=== PATIENT | male | born 1945 | race American Indian/Alaskan Native ===

== ENCOUNTER 2016-08-22 07:42 | Day surgery (SDC) | payer MEDICARE, OTHER ==
[~2016-08-22] VITALS: Ht 193 cm; Wt 83.2 kg
[2016-08-22] VITALS (12 sets, daily range): BP systolic 133–163; BP diastolic 64–80; PULSE 55–60; RESP 18–20; TEMP 97.8–98.9; O2SAT 93–97
[~2016-08-22 07:42] MED LIST: AZAT50 PO; CEPH500 PO; CEPH500C3 PO; CYCL25CA4 PO; DILTCD180 PO; DOXA1TAB3 PO; FOLI1TAB PO; HYDR-3580 PO; LACT PO; MAGN200T PO; METO25 PO; PRED5 PO; PRED5TAB PO; VITA-13 PO; WARF5 PO
[2016-08-22] MEDS ORDERED: METO25TA3 PO (08:29)
[2016-08-22] MEDS ORDERED: WARF-20 PO (08:29)
[2016-08-22] MEDS ORDERED: HYDR-3580 PO (08:29)
[2016-08-22] MEDS ORDERED: DOXA1TAB36 PO (08:29)
[2016-08-22] MEDS ORDERED: METO50TA PO (08:29)
[2016-08-22] MEDS ORDERED: MAGN500T5 PO (08:29)
[2016-08-22] MEDS ORDERED: CYCL25CA4 PO (08:29)
[2016-08-22] MEDS ORDERED: PRED5TAB PO (08:29)
[2016-08-22] MEDS ORDERED: FOLI5CAP PO (08:29)
[2016-08-22] MEDS ORDERED: VITA1000 PO (08:29)
[2016-08-22 08:56] LABS: AUTOMATED NEUTROPHIL # 3.8 TH/MM3 (1.8-7.7); BASOPHIL # 0.1 TH/MM3 (0-0.2); BASOPHIL % 0.8 % (0.0-2.0); EOSINOPHIL # 0.1 TH/MM3 (0-0.4); EOSINOPHIL % 0.8 % (0.0-4.0); HEMO FLAGS DIFF FINAL; LYMPH % 35.3 % (9.0-44.0); LYMPHOCYTE # 2.5 TH/MM3 (1.0-4.8); MEAN CELL VOLUME 88.4 FL (80.0-100.0); MEAN CORPUSCULAR HEMOGLOBIN 29.2 PG (27.0-34.0); MEAN CORPUSCULAR HGB CONC 33.1 % (32.0-36.0); MONO % 10.9 % (0.0-8.0); NEUT % 52.2 % (16.0-70.0); PLATELET COUNT 197 TH/MM3 (150-450); RED BLOOD COUNT 4.19 MIL/MM3 (4.50-5.90); RED CELL DISTRIBUTION WIDTH 15.3 % (11.6-17.2); WHITE BLOOD COUNT 7.2 TH/MM3 (4.0-11.0)
[2016-08-22 09:07] LABS: APTT (PATIENT) 24.5 SEC (24.3-30.1); PROTHROMBIN TIME - PATIENT 11.4 SEC (9.8-11.6)
[2016-08-22 09:16] LABS: BICARBONATE 28.6 MEQ/L (21.0-32.0); POTASSIUM 4.2 MEQ/L (3.5-5.1)
[2016-08-22] MEDS ORDERED: MIDAZOLAM HCL 5 MG/5 ML VIAL ONE (09:41)
[2016-08-22] MEDS ORDERED: fentaNYL CITRATE 250 MCG/5 ML AMP ONE (09:41)
[2016-08-22] MEDS ORDERED: IODIXANOL 320 MG/ML 50 ML VIAL (for RAD SPEC) I-ARTERIAL ONE (11:27)
--- NOTE | 2016-08-22 14:13 | RADRPT ---
EXAM DATE/TIME: 08/22/2016 10:04 [facility] COMPARISON: No previous studies available for comparison. INDICATIONS : Patient presents with post kidney transplant in need of renal angiogram to rule out stenosis. MEDICAL HISTORY : Afib Septic bursitis Skin cancer CKD Osteoarthritis HTN PAD Hyperlipemia SURGICAL HISTORY : Kidney tx 1996 Afib ablation Right rotator cuff repair Ureteral stenting 2010 Fibula repair ENCOUNTER: Initial ACUITY: 3 weeks PAIN SCORE: 0/10 LOCATION: N/A FLUORO TIME: 20.9 minutes IMAGE SERIES: 7 ACCESS SITE: Left Femoral artery SEDATION TIME: 60 minutes CONTRAST: 1.) 30 cc Visipaque (iodixanol) MEDICATION(S): 1.) 4.5 mg IV 2.) 225 mcg IV PROCEDURE : 1. Ultrasound-guided puncture of the access site. 2. Conscious sedation with continuous EKG and Oximetry monitoring. 3. Angiography of the pelvis 4. Angiography of the right external iliac artery The risks, benefits and alternatives to the procedure were explained and verbal and written consent w as obtained. The site was prepped in sterile fashion. Full sterile technique was used, including ca p, mask, sterile gloves and gown and a large sterile sheet. Hand hygiene and 2% chlorhexidine and/or betadine/alcohol prep was utilized per protocol for cutaneous antisepsis. The skin and subcutaneous tissues were infiltrated with local anesthetic solution. With ultrasound and fluoroscopic guidance the selected artery was punctured and a vascular sheath was placed The Omni flush catheter was placed over the aortic bifurcation and a guidewire was advanced into the common femoral artery. A Berenstein catheter was placed over the bifurcation into the right external iliac artery and angiography was performed to demonstrate the renal transplant. The renal artery is w idely patent. The venous phase is also unremarkable. The puncture site was closed with manual pressure and hemostasis was obtained. The patient tolerated the procedure well and there were no complications. Conscious sedation was performed with the prescribed dosages and duration as above in the presence of an independent trained radiology nurse to assist in the monitoring of the patient. EKG and oximetry remained stable throughout the procedure. CONCLUSION: 1. No evidence of renal artery stenosis. Yehuda Rosario MD on August 22, 2016 at 14:10 Board Certified Radiologist. This report was verified electronically.
[2016-08-22] MEDS ORDERED: SODIUM CHLOR 0.9% 1000 ML INJ 1,000 ML IV SCH (14:35)
--- NOTE | 2016-08-22 14:36 | PD.RAD ---
Post Procedure Progress Note Pre Procedure Diagnosis: (1) HTN (hypertension) Post Procedure Diagnosis: (1) HTN (hypertension) Procedure Date: Aug 22, 2016 Supervising Radiologist: Yehuda Rosario Proceduralist/Assist: Greg Reese, RT(R), Devorah Simon RT(R)() Anesthesia: Conscious Sedation Plan of Activity Patient to Unit: ROPU Patient Condition: Good See PACS Report for procedural detail/treatment Vascular-Arterial Procedure Procedure 1 Procedure Site: Right Renal Procedure(s): Angiogram Access Access Site(s): Left Femoral Artery Closure Site(s): Left manual pressure Yehuda Rosario MD Aug 22, 2016 14:36
[2016-08-22] MEDS ORDERED: ACETAMINOPHEN 325 MG TAB PO PRN (14:45)
[2016-08-22] MEDS ORDERED: oxyCODONE/ACETAMINOPHEN 5 MG/325 MG TAB PO PRN (14:45)
== END 2016-08-22 17:20 | disposition home or self-care (01) ==
LOC: HROP 07:42 → HRIP 07:43 → HROP 17:20
PROVIDERS: ATTEND Internal Medicine Nephrology
DX: I10 Essential (primary) hypertension (principal); I48.91 Unspecified atrial fibrillation; Z94.0 Kidney transplant status; Z85.828 Personal history of other malignant neoplasm of skin
CPT/HCPCS: 36251; 76937; 80048; 85025; 85610; 85730; 99152; 99153; C1769; C1887; C1894; J2250; J3010; Q9967

== ENCOUNTER → 2016-12-05 | Outpatient (CLI) | payer MEDICARE, OTHER ==
[~2016-12-05] MED LIST changes: +AMLO2.5T PO; -AZAT50 PO; -CEPH500 PO; -CEPH500C3 PO; -DILTCD180 PO; +DOXA1TAB36 PO; +FOLI5CAP PO; +FOLI800T PO; +FURO1TAB62 PO; +GUAN1TAB PO; +IMUR50TA PO; -LACT PO; +LOSA50TA PO; +MAGN500T5 PO; +METO25TA3 PO; +METO50TA PO; +VITA1000 PO; +WARF-20 PO; -WARF5 PO
[2016-12-05 11:20] LABS: POTASSIUM 3.9 MEQ/L (3.5-5.1)
== END ==
LOC: CLAB 10:13
PROVIDERS: ATTEND Internal Medicine Cardiovascular Disease
DX: I48.0 Paroxysmal atrial fibrillation (principal); R60.0 Localized edema; Z94.0 Kidney transplant status
CPT/HCPCS: 36415; 80048; 83880

== ENCOUNTER 2016-12-06 10:09 | Emergency (ER) | payer MEDICARE, OTHER ==
[~2016-12-06] VITALS: Ht 193 cm; Wt 84.0 kg
[~2016-12-06 10:09] MED LIST changes: -AMLO2.5T PO; -FOLI800T PO; -FURO1TAB62 PO; -GUAN1TAB PO; -IMUR50TA PO; -LOSA50TA PO
[2016-12-06 10:13] VITALS: BP 194/93; PULSE 94; RESP 16; TEMP 98.6; O2SAT 97
[2016-12-06] MEDS ORDERED: LOSA50TA PO (10:45)
[2016-12-06] MEDS ORDERED: GUAN1TAB PO (10:45)
[2016-12-06] MEDS ORDERED: FURO1TAB62 PO ×2 (10:45→14:50)
[2016-12-06] MEDS ORDERED: IMUR50TA PO (10:45)
[2016-12-06] MEDS ORDERED: AMLO2.5T PO (10:45)
[2016-12-06] MEDS ORDERED: FOLI800T PO (10:45)
[2016-12-06 11:15] VITALS: BP 181/97; PULSE 59; RESP 17; TEMP 97.7; O2SAT 98
[2016-12-06 11:35] LABS: AUTOMATED NEUTROPHIL # 4.8 TH/MM3 (1.8-7.7); BASOPHIL # 0.1 TH/MM3 (0-0.2); BASOPHIL % 1.2 % (0.0-2.0); EOSINOPHIL # 0.1 TH/MM3 (0-0.4); EOSINOPHIL % 1.6 % (0.0-4.0); HEMATOCRIT 36.7 % (39.0-51.0); HEMO FLAGS DIFF FINAL; LYMPH % 24.3 % (9.0-44.0); LYMPHOCYTE # 1.9 TH/MM3 (1.0-4.8); MEAN CELL VOLUME 86.7 FL (80.0-100.0); MEAN CORPUSCULAR HEMOGLOBIN 28.5 PG (27.0-34.0); MEAN CORPUSCULAR HGB CONC 32.8 % (32.0-36.0); MONO % 11.1 % (0.0-8.0); NEUT % 61.8 % (16.0-70.0); PLATELET COUNT 233 TH/MM3 (150-450); RED BLOOD COUNT 4.24 MIL/MM3 (4.50-5.90); WHITE BLOOD COUNT 7.8 TH/MM3 (4.0-11.0)
[2016-12-06 11:36] LABS: BLOOD, URINE NEG (NEG); GLUCOSE,URINE NEG (NEG); KETONE, URINE NEG (NEG); NITRITE,URINE NEG (NEG); URINE COLOR LIGHT-YELLOW (YELLW/STRAW)
[2016-12-06 11:37] LABS: COMMENT (UR) CULT NOT INDICATED; CULTURE IF INDICATED CULT NOT INDICATED
--- NOTE | 2016-12-06 11:47 | RADRPT ---
EXAM DATE/TIME: 12/06/2016 11:19 [facility] COMPARISON: CHEST SINGLE AP, April 10, 2015, 2:55. INDICATIONS : Shortness of breath and swelling in feet. MEDICAL HISTORY : Hypertension. SURGICAL HISTORY : Kidney transplant ENCOUNTER: Initial ACUITY: 4 - 6 days PAIN SCORE: 0/10 LOCATION: Bilateral chest FINDINGS: Cardiac silhouette is enlarged with slight indistinctness of the central pulmonary vasculature. Lungs are otherwise clear. Bony thorax is intact. CONCLUSION: 1. Cardiomegaly with mild positive fluid balance. Felipe Ayala MD on December 06, 2016 at 11:44 Board Certified Radiologist. This report was verified electronically.
--- NOTE | 2016-12-06 11:47 | PD ---
HPI Chief Complaint: Hypertension Time Seen by Provider: 11:10 Travel History International Travel<30 days: No Contact w/Intl Traveler<30days: No Traveled to known affect area: No History of Present Illness HPI This is a 71-year-old gentleman with a history of hypertension, status post renal transplant 20 years ago, who presents today with complaints of elevated blood pressure. The patient states that his blood pressures been creeping up over the last week or so. He states that he sat is metoprolol increased however still persistently increasing. Today he noted his blood pressure to be 200 systolic and at that time decided to come in to be evaluated. He states he works with Dr. You and Dr. Braun for his blood pressure control. He states that Dr. Braun is out of town and Dr. You is out of the office. Patient denies any chest pain, chest pressure. He denies any shortness of breath. He denies any headache or dizziness at this time. PFSH Past Medical History Hx Anticoagulant Therapy: Yes Arthritis: Yes Asthma: No Atrial Fibrillation: Yes Autoimmune Disease: No Anxiety: Yes Depression: No Heart Rhythm Problems: Yes (a fib ) Cancer: Yes (SKIN CA ON EAR AND CHEST) Cardiovascular Problems: Yes (HTN) High Cholesterol: Yes Chemotherapy: No Chest Pain: No Congestive Heart Failure: No COPD: No Cerebrovascular Accident: No Diabetes: No (HX KIDEY TRANSPLANT) Diminished Hearing: Yes (left ear [place] ) Endocrine: No GERD: No Genitourinary: Yes (BPH) Hepatitis: No Hiatal Hernia: No Hypertension: Yes Immune Disorder: Yes (on immunosuppressant therapy ) Kidney Stones: No Medical other: Yes (VOICE CHANGES--DIFFICULTY CLEARING THROAT) Musculoskeletal: Yes (BACK PROBLEMS, ARTHRITIS) Neurologic: No Psychiatric: Yes Reproductive: No Respiratory: No Migraines: No Radiation Therapy: No Renal Failure: Yes (TRANSPLANT) Seizures: No Sleep Apnea: No Thyroid Disease: No Ulcer: No Past Surgical History Abdominal Surgery: Yes (R INGUINAL HERNIA REPAIR 2010) AICD: No Arteriovenous Shunt: No Body Medical Devices: KIDNEY TRANSPLANT Cardiac Surgery: No Ear Surgery: Yes (skin cancer surgery ) Endocrine Surgery: No Eye Surgery: No Genitourinary Surgery: Yes (KIDNEY TRANSPLANT 1996) Insulin Pump: No Joint Replacement: No Oral Surgery: No Pacemaker: No Thoracic Surgery: No Other Surgery: Yes (KIDNEY REPLACEMENT) Social History Alcohol Use: No Tobacco Use: No Substance Use: No Allergies-Medications (Allergen,Severity, Reaction): Coded Allergies: No Known Allergies (Verified , 12/06/16) Reported Meds & Prescriptions Reported Meds & Active Scripts Active Lasix (Furosemide) 20 Mg Tab 20 Mg PO DAILY Reported Losartan (Losartan Potassium) 50 Mg Tab 50 Mg PO DAILY Lasix (Furosemide) 20 Mg Tab 20 Mg PO DAILY Guanfacine (Guanfacine HCl) 1 Mg Tab 1 Mg PO HS Do not crush, chew or divide tablet. Take with a meal. Amlodipine (Amlodipine Besylate) 2.5 Mg Tab 2.5 Mg PO DAILY Folic Acid 800 Mcg Tab 1,000 Mcg PO DAILY Imuran (Azathioprine) 50 Mg Tab 50 Mg PO DAILY Hazardous agent: use appropriate precautions for handling and disposal. Warfarin 4 Mg Tab 4 Mg PO DAILY Prednisone 5 Mg Tab 5 Mg PO DAILY Metoprolol Tartrate 50 Mg Tab 50 Mg PO HS Metoprolol Tartrate 25 Mg Tab 25 Mg PO DAILY Magnesium Gluconate 500 Mg Tab 400 Mg PO DAILY Hydrocodone-Acetaminophen 7.5-325 mg Tab 1 Tab PO Q6H PRN Doxazosin (Doxazosin Mesylate) 1 Mg Tab 1 Mg PO HS Cyclosporine 25 Mg Cap 50 Mg PO BID Vitamin D-1000 (Cholecalciferol) 1,000 Unit Tab 1,000 Units PO DAILY Review of Systems Except as stated in HPI: all other systems reviewed are Neg General / Constitutional: No: Fever, Chills Eyes: No: Blurred Vision, Photophobia HENT: No: Headaches, Neck Pain Cardiovascular: No: Chest Pain or Discomfort, Palpitations Respiratory: No: Shortness of Breath, Wheezing Gastrointestinal: No: Nausea, Vomiting Musculoskeletal: Positive: Other (patient has 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 SKIN: Focused skin assessment warm/dry. HEAD: Atraumatic. Normocephalic. EYES: No scleral icterus. No injection or drainage. ENT: No nasal bleeding or discharge. Mucous membranes pink and moist. NECK: Trachea midline. No JVD. CARDIOVASCULAR: Regular rate and rhythm 3/6 systolic murmur heard at the right sternal border. No murmur appreciated. RESPIRATORY: No accessory muscle use. Clear to auscultation. Breath sounds equal bilaterally. GASTROINTESTINAL: Abdomen soft, non-tender, nondistended. Hepatic and splenic margins not palpable. MUSCULOSKELETAL: Distended varicosities of his left upper extremity secondary to this previous fistulas. No clubbing. No cyanosis. No edema. NEUROLOGICAL: Awake and alert. No obvious cranial nerve deficits. Motor grossly within normal limits. Normal speech. Data Data Last Documented VS Vital Signs Date Time Temp Pulse Resp B/P Pulse Ox O2 Delivery O2 Flow Rate FiO2 12/06/16 13:26 97.7 58 17 170/81 98 Room Air Orders Complete Blood Count With Diff (12/06/16 11:10) Comprehensive Metabolic Panel (12/06/16 11:10) Urinalysis - C+S If Indicated (12/06/16 11:10) Magnesium (Mg) (12/06/16 11:10) Phosphorus (Po4) (12/06/16 11:10) Chest, Single Ap (12/06/16 11:10) Iv Access Insert/Monitor (12/06/16 11:10) Ecg Monitoring (12/06/16 11:10) Oximetry (12/06/16 11:10) Prothrombin Time / Inr (Pt) (12/06/16 12:07) Act Partial Throm Time (Ptt) (12/06/16 12:07) Hydralazine (Apresoline) (12/06/16 12:15) Sodium Chlorid 0.9% 500 Ml Inj (Ns 500 M (12/06/16 14:00) Labs Laboratory Tests Test 12/06/16 12/06/16 11:15 12:15 White Blood Count 7.8 TH/MM3 Red Blood Count 4.24 MIL/MM3 Hemoglobin 12.1 GM/DL Hematocrit 36.7 % Mean Corpuscular Volume 86.7 FL Mean Corpuscular Hemoglobin 28.5 PG Mean Corpuscular Hemoglobin 32.8 % Concent Red Cell Distribution Width 14.0 % Platelet Count 233 TH/MM3 Mean Platelet Volume 6.9 FL Neutrophils (%) (Auto) 61.8 % Lymphocytes (%) (Auto) 24.3 % Monocytes (%) (Auto) 11.1 % Eosinophils (%) (Auto) 1.6 % Basophils (%) (Auto) 1.2 % Neutrophils # (Auto) 4.8 TH/MM3 Lymphocytes # (Auto) 1.9 TH/MM3 Monocytes # (Auto) 0.9 TH/MM3 Eosinophils # (Auto) 0.1 TH/MM3 Basophils # (Auto) 0.1 TH/MM3 CBC Comment DIFF FINAL Differential Comment Urine Color LIGHT-YELLOW Urine Turbidity CLEAR Urine pH 6.0 Urine Specific [place] 1.006 Urine Protein 100 mg/dL Urine Glucose (UA) NEG mg/dL Urine Ketones NEG mg/dL Urine Occult Blood NEG Urine Nitrite NEG Urine Bilirubin NEG Urine Urobilinogen LESS THAN 2.0 MG/DL Urine Leukocyte Esterase NEG Urine RBC LESS THAN 1 /hpf Urine WBC 1 /hpf Microscopic Urinalysis Comment CULT NOT INDICATED Sodium Level 141 MEQ/L Potassium Level 4.0 MEQ/L Chloride Level 108 MEQ/L Carbon Dioxide Level 25.4 MEQ/L Anion Gap 8 MEQ/L Blood Urea Nitrogen 25 MG/DL Creatinine 1.22 MG/DL Estimat Glomerular Filtration 58 ML/MIN Rate Random Glucose 79 MG/DL Calcium Level 8.8 MG/DL Phosphorus Level 2.5 MG/DL Magnesium Level 2.2 MG/DL Total Bilirubin 0.8 MG/DL Aspartate Amino Transf 20 U/L (AST/SGOT) Alanine Aminotransferase 26 U/L (ALT/SGPT) Alkaline Phosphatase 67 U/L Total Protein 6.4 GM/DL Albumin 2.9 GM/DL Prothrombin Time 19.2 SEC Prothromb Time International 1.7 RATIO Ratio Activated Partial 33.6 SEC Thromboplast Time MDM Medical Decision Making Medical Screen Exam Complete: Yes Emergency Medical Condition: Yes Differential Diagnosis Uncontrolled hypertension versus metabolic derangement versus worsening renal function. Narrative Course This is a 71-year-old male with history of renal transplant, hypertension, who presents here with elevated blood pressure. The patient also is concerned his creatinine may be increased. The patient's crit is 1.2 which is close to his baseline. He also is complaining of lower extremity edema. He is currently taking amlodipine, 2.5 mg daily. This possibly could be the cause of his lower extremity edema. He is currently taking Lasix I will prescribe 5 further days of Lasix at 20 mg a day. He is instructed to purchase some medium support hose to help redistribute the edema in his lower extremities. He is also instructed to increase his metoprolol to 50 mg in the morning instead of 25 and to continue his 50 mg at night. He will need to follow up with Dr. You, his drilling contractor, within one week. He is also instructed to continue drinking the same amount of fluid that he is currently drinking at this time. Diagnosis Primary Impression: Hypertension Additional Impressions: Bilateral lower extremity edema Renal transplant, status post Additional Instructions: Increase your morning dose of metoprolol to 50 mg. Continue your evening dose at 50 mg. Please purchase some medium support stockings and wear during the day. Follow up with Dr. You within one week. Med/Other Pt SpecificInfo: Prescription(s) given Scripts Furosemide (Lasix)20 Mg Tab20 Mg PO DAILY #5 TAB Ref 0 Prov:Darvin Mckeon MD 12/06/16 Disposition: 01 DISCHARGE HOME Condition: Stable Darvin Mckeon MD Dec 06, 2016 11:47
[2016-12-06 11:55] LABS: ALT (GPT) 26 U/L (12-78); ANION GAP 8 MEQ/L (5-15); AST (GOT) 20 U/L (15-37); BICARBONATE 25.4 MEQ/L (21.0-32.0); BLOOD UREA NITROGEN 25 MG/DL (7-18); CHLORIDE 108 MEQ/L (98-107); GLOMERULAR FILTRATION RATE 58 ML/MIN (>89); MAGNESIUM 2.2 MG/DL (1.5-2.5); SODIUM (NA) 141 MEQ/L (136-145)
[2016-12-06 11:57] LABS: ALKALINE PHOSPHATASE 67 U/L (45-117); TOTAL BILIRUBIN ADULT 0.8 MG/DL (0.2-1.0)
[2016-12-06 12:08] VITALS: BP 170/81; PULSE 59; RESP 17; O2SAT 97
[2016-12-06] MEDS ORDERED: hydrALAZINE HCL 10 MG TAB PO ONE (12:15)
[2016-12-06 12:43] LABS: APTT (PATIENT) 33.6 SEC (24.3-30.1); INTERNATIONAL NORMALIZED RATIO 1.7 RATIO; PROTHROMBIN TIME - PATIENT 19.2 SEC (9.8-11.6)
[2016-12-06 13:26] VITALS: BP 170/81; PULSE 58; RESP 17; TEMP 97.7; O2SAT 98
[2016-12-06] MEDS ORDERED: SODIUM CHLORID 0.9% 500 ML INJ 500 ML IV ONE (14:00)
[2016-12-06 15:07] VITALS: BP 160/72; TEMP 97.7
== END 2016-12-06 15:07 | disposition home or self-care (01) ==
LOC: NEPE 10:09
DX: I10 Essential (primary) hypertension (principal); R60.0 Localized edema; I48.91 Unspecified atrial fibrillation; E78.00 Pure hypercholesterolemia, unspecified; Z94.0 Kidney transplant status; Z79.01 Long term (current) use of anticoagulants
CPT/HCPCS: 71010; 80053; 81001; 83735; 84100; 85025; 85610; 85730; 96360; 99284; J7040

== ENCOUNTER 2016-12-14 10:23 | Emergency (ER) | payer MEDICARE, OTHER ==
[~2016-12-14] VITALS: Ht 193 cm; Wt 80.0 kg
[~2016-12-14 10:23] MED LIST changes: +AMLO2.5T PO; +FOLI800T PO; +FURO1TAB62 PO; +GUAN1TAB PO; +IMUR50TA PO; +LOSA50TA PO
[2016-12-14 10:26] VITALS: BP 160/72; PULSE 64; RESP 16; TEMP 97.9; O2SAT 97
[2016-12-14] MEDS ORDERED: ACETAMINOPHEN/HYDROcodone 325 MG/5 MG TAB PO ONE (11:00)
--- NOTE | 2016-12-14 11:07 | PD ---
HPI Chief Complaint: Injury Time Seen by Provider: 10:48 Travel History International Travel<30 days: No Contact w/Intl Traveler<30days: No Traveled to known affect area: No History of Present Illness HPI 71-year-old male here with left hand pain. Patient states that he injured the left hand yesterday evening, hitting it. Since he has noticed swelling, bruising. Patient has a history of ESRD, and has an old AV fistula in his left upper extremity. He had a renal transplant and so no longer uses this. He does not note any baseline swelling in the left hand from the AV fistula. He is anticoagulated on Coumadin and states that he bruises easily. He has been using hydrocodone with some improvement of his pain, he takes this chronically. PFSH Past Medical History Hx Anticoagulant Therapy: Yes (coumadin) Arthritis: Yes Asthma: No Atrial Fibrillation: Yes Autoimmune Disease: No Anxiety: Yes Depression: No Heart Rhythm Problems: Yes (a fib ) Cancer: Yes (SKIN CA ON EAR AND CHEST) Cardiovascular Problems: Yes (HTN) High Cholesterol: Yes Chemotherapy: No Chest Pain: No Congestive Heart Failure: No COPD: No Cerebrovascular Accident: No Diminished Hearing: Yes (left ear [place] ) Endocrine: No GERD: No Genitourinary: Yes (BPH) Hepatitis: No Hiatal Hernia: No Hypertension: Yes Immune Disorder: Yes (on immunosuppressant therapy ) Kidney Stones: No Medical other: Yes (VOICE CHANGES--DIFFICULTY CLEARING THROAT) Musculoskeletal: Yes (BACK PROBLEMS, ARTHRITIS) Neurologic: No Psychiatric: Yes Reproductive: No Respiratory: No Migraines: No Radiation Therapy: No Renal Failure: Yes (TRANSPLANT) Seizures: No Sleep Apnea: No Thyroid Disease: No Ulcer: No Past Surgical History Abdominal Surgery: Yes (R INGUINAL HERNIA REPAIR 2010) AICD: No Arteriovenous Shunt: No Body Medical Devices: KIDNEY TRANSPLANT Cardiac Surgery: No Ear Surgery: Yes (skin cancer surgery ) Endocrine Surgery: No Eye Surgery: No Genitourinary Surgery: Yes (KIDNEY TRANSPLANT 1996) Insulin Pump: No Joint Replacement: No Oral Surgery: No Pacemaker: No Thoracic Surgery: No Other Surgery: Yes (KIDNEY REPLACEMENT, RIGHT SHOULDER ROTATOR CUFF) Social History Alcohol Use: No Tobacco Use: No Substance Use: No Allergies-Medications (Allergen,Severity, Reaction): Coded Allergies: No Known Allergies (Verified , 12/14/16) Reported Meds & Prescriptions Reported Meds & Active Scripts Active Lasix (Furosemide) 20 Mg Tab 20 Mg PO DAILY Reported Losartan (Losartan Potassium) 50 Mg Tab 50 Mg PO DAILY Lasix (Furosemide) 20 Mg Tab 20 Mg PO DAILY Guanfacine (Guanfacine HCl) 1 Mg Tab 1 Mg PO HS Do not crush, chew or divide tablet. Take with a meal. Amlodipine (Amlodipine Besylate) 2.5 Mg Tab 2.5 Mg PO DAILY Folic Acid 800 Mcg Tab 1,000 Mcg PO DAILY Imuran (Azathioprine) 50 Mg Tab 50 Mg PO DAILY Hazardous agent: use appropriate precautions for handling and disposal. Warfarin 4 Mg Tab 4 Mg PO DAILY Prednisone 5 Mg Tab 5 Mg PO DAILY Metoprolol Tartrate 50 Mg Tab 50 Mg PO HS Metoprolol Tartrate 25 Mg Tab 25 Mg PO DAILY Magnesium Gluconate 500 Mg Tab 400 Mg PO DAILY Hydrocodone-Acetaminophen 7.5-325 mg Tab 1 Tab PO Q6H PRN Doxazosin (Doxazosin Mesylate) 1 Mg Tab 1 Mg PO HS Cyclosporine 25 Mg Cap 50 Mg PO BID Vitamin D-1000 (Cholecalciferol) 1,000 Unit Tab 1,000 Units PO DAILY Review of Systems Except as stated in HPI: all other systems reviewed are Neg Physical Exam Narrative GENERAL: Well-appearing male in no acute distress SKIN: Focused skin assessment warm/dry. HEAD: Normocephalic. EYES: No scleral icterus. No injection or drainage. CARDIOVASCULAR: Regular rate and rhythm. RESPIRATORY: No accessory muscle use. MUSCULOSKELETAL: Left upper extremity with large AV fistula with palpable thrill. The left hand is ecchymotic particularly on the palmar aspect and the dorsal fifth and fourth metacarpals. There is no bony tenderness to palpation or step-offs. Patient does have some mild pain with passive and active range of motion of the hand diffusely, focused most around the fifth and fourth MCP' s. The function of the intrinsic muscles of the hand, flexion and extension of the fingers and thumb opposition are intact. NEUROLOGICAL: Awake and alert. Normal speech. PSYCHIATRIC: Appropriate mood and affect; insight and judgment normal. Data Data Last Documented VS Vital Signs Date Time Temp Pulse Resp B/P Pulse Ox O2 Delivery O2 Flow Rate FiO2 12/14/16 10:26 97.9 64 16 160/72 97 Orders Hand, Complete (Aan9lpi) (12/14/16 ) Acetamin-Hydrocod 325-5 Mg ([place] 5-325 (12/14/16 11:00) MDM Medical Decision Making Medical Screen Exam Complete: Yes Emergency Medical Condition: Yes Medical Record Reviewed: Yes Differential Diagnosis 71-year-old male here with left hand pain after he injured it last night. Ecchymotic and swelling. This could be simply due to hematoma/ecchymosis from his underlying anticoagulation on Coumadin. Differential includes concurrent fracture and less likely dislocation. Narrative Course Given hydrocodone for pain. X-ray of the left hand shows no acute abnormalities. Patient reassured and discharged home Diagnosis Primary Impression: Contusion of left hand including fingers Qualified Code: S60.222A - Contusion of left hand including fingers, initial encounter Referrals: Primary Care Physician as needed Additional Instructions: Continue hydrocodone as needed for pain. Elevate the left hand to help with swelling. Ice the affected area 20 minutes at a time 3-4 times daily as needed for pain. Follow-up with primary if symptoms persist. Med/Other Pt SpecificInfo: No Change to Meds Disposition: 01 DISCHARGE HOME Condition: Stable Vicenta Lovelace MD Dec 14, 2016 11:07
--- NOTE | 2016-12-14 11:58 | RADRPT ---
EXAM DATE/TIME: 12/14/2016 11:20 [facility] COMPARISON: HAND LEFT COMPLETE ([id number]), April 02, 2016, 11:09. INDICATIONS : Left hand pain, jammed in car door. MEDICAL HISTORY : Renal disease, end stage. AV fistula SURGICAL HISTORY : None. ENCOUNTER: Initial ACUITY: 1 day PAIN SCORE: 10/10 LOCATION: Left hand, metacarpals FINDINGS: Three view examination of the left hand demonstrates no soft tissue swelling, dislocation, or fractur e. The carpal bones appear intact. The interphalangeal and metacarpophalangeal joints are intact. Bony mineralization is normal. 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 Jhonatan Sharma MD FACR on December 14, 2016 at 11:54 Board Certified Radiologist. This report was verified electronically.
== END 2016-12-14 12:29 | disposition home or self-care (01) ==
LOC: NEPD 10:23
DX: S60.222A Contusion of left hand, initial encounter (principal); M19.90 Unspecified osteoarthritis, unspecified site; I48.91 Unspecified atrial fibrillation; F41.9 Anxiety disorder, unspecified; E78.00 Pure hypercholesterolemia, unspecified; N40.0 Benign prostatic hyperplasia without lower urinary tract symptoms; I12.0 Hypertensive chronic kidney disease with stage 5 chronic kidney disease or end stage renal disease; N18.6 End stage renal disease; W22.8XXA Striking against or struck by other objects, initial encounter
CPT/HCPCS: 73130; 99283

== ENCOUNTER 2017-02-18 07:06 | Emergency (ER) | payer MEDICARE, OTHER ==
[2017-02-18] VITALS (7 sets, daily range): BP systolic 171–196; BP diastolic 72–83; PULSE 60–84; RESP 18; TEMP 98.1; O2SAT 96–97
[~2017-02-18] VITALS: Ht 193 cm; Wt 80.8 kg
[~2017-02-18 07:06] MED LIST changes: -DOXA1TAB3 PO; -FOLI1TAB PO; -FOLI5CAP PO; -MAGN200T PO; -METO25 PO; -PRED5 PO; -VITA-13 PO
[2017-02-18] MEDS ORDERED: METO100T9 PO (07:28)
--- NOTE | 2017-02-18 07:49 | PD ---
HPI Chief Complaint: Hypertension Time Seen by Provider: 07:47 Travel History International Travel<30 days: No Contact w/Intl Traveler<30days: No Traveled to known affect area: No History of Present Illness HPI 71-year-old male patient with history of hypertension, kidney transplant, multiple medical issues, presents to the ER today because he states that he has had 2 days history of headaches and his blood pressures up and fairly elevated. He states that 2 weeks ago his primary care physician had taken him off of some of his blood pressure control medications, because he states that his blood pressure drops at times. He states that he has noticed in the last week or so that his blood pressure has been more elevated than usual. He denies any chest pains, shortness of breath, neurological symptoms, or any other issues. He states that his headache is a 6 out of 10 currently. He denies any nausea, vomiting, stiff neck, photophobia, or fevers. He states that he gets headaches on occasion. Modifying Factors: None Associated Signs & Symptoms: Headache, elevated blood pressure Risk Factors: History of hypertension, kidney transplant, recent blood pressure medication changes PFSH Past Medical History Hx Anticoagulant Therapy: Yes (coumadin) Arthritis: Yes Asthma: No Atrial Fibrillation: Yes Autoimmune Disease: No Anxiety: Yes Depression: No Heart Rhythm Problems: Yes (a fib ) Cancer: Yes (SKIN CA ON EAR AND CHEST) Cardiovascular Problems: Yes (HTN) High Cholesterol: Yes Chemotherapy: No Chest Pain: No Congestive Heart Failure: No COPD: No Cerebrovascular Accident: No Diminished Hearing: Yes (left ear [place] ) Endocrine: No GERD: No Genitourinary: Yes (BPH) Hepatitis: No Hiatal Hernia: No Hypertension: Yes Immune Disorder: Yes (on immunosuppressant therapy ) Kidney Stones: No Medical other: Yes (VOICE CHANGES--DIFFICULTY CLEARING THROAT) Musculoskeletal: Yes (BACK PROBLEMS, ARTHRITIS) Neurologic: No Psychiatric: Yes Reproductive: No Respiratory: No Migraines: No Radiation Therapy: No Renal Failure: Yes (TRANSPLANT) Seizures: No Sleep Apnea: No Thyroid Disease: No Ulcer: No Influenza Vaccination: No Past Surgical History Abdominal Surgery: Yes (R INGUINAL HERNIA REPAIR 2010) AICD: No Arteriovenous Shunt: No Body Medical Devices: KIDNEY TRANSPLANT Cardiac Surgery: No Ear Surgery: Yes (skin cancer surgery ) Endocrine Surgery: No Eye Surgery: No Genitourinary Surgery: Yes (KIDNEY TRANSPLANT 1996) Insulin Pump: No Joint Replacement: No Oral Surgery: No Pacemaker: No Thoracic Surgery: No Other Surgery: Yes (KIDNEY REPLACEMENT, RIGHT SHOULDER ROTATOR CUFF) Social History Alcohol Use: No Tobacco Use: No Substance Use: No Allergies-Medications (Allergen,Severity, Reaction): Coded Allergies: No Known Allergies (Verified , 02/18/17) Reported Meds & Prescriptions Reported Meds & Active Scripts Active Reported Metoprolol Succinate ER 24 HR (Metoprolol Succinate) 100 Mg Tab 100 Mg PO HS Losartan (Losartan Potassium) 50 Mg Tab 100 Mg PO DAILY Folic Acid 800 Mcg Tab 1,000 Mcg PO DAILY Warfarin 4 Mg Tab 4 Mg PO DAILY Prednisone 5 Mg Tab 5 Mg PO DAILY Metoprolol Tartrate 25 Mg Tab 25 Mg PO DAILY Magnesium Gluconate 500 Mg Tab 400 Mg PO DAILY Doxazosin (Doxazosin Mesylate) 1 Mg Tab 4 Mg PO HS Cyclosporine 25 Mg Cap 50 Mg PO BID Review of Systems Except as stated in HPI: all other systems reviewed are Neg Physical Exam Narrative GENERAL: Well-developed pleasant elderly white male patient currently in mild distress. Awake and oriented 3. SKIN: Focused skin assessment warm/dry. HEAD: Atraumatic. Normocephalic. EYES: Pupils equal and round. No scleral icterus. No injection or drainage. ENT: No nasal bleeding or discharge. Mucous membranes pink and moist. NECK: Trachea midline. No JVD. Supple. CARDIOVASCULAR: Regular rate and rhythm. No murmur appreciated. RESPIRATORY: No accessory muscle use. Clear to auscultation. Breath sounds equal bilaterally. GASTROINTESTINAL: Abdomen soft, non-tender, nondistended. Hepatic and splenic margins not palpable. MUSCULOSKELETAL: No obvious deformities. No clubbing. No cyanosis. No edema. NEUROLOGICAL: Awake and alert. No obvious cranial nerve deficits. Motor grossly within normal limits. Normal speech. PSYCHIATRIC: Appropriate mood and affect; insight and judgment normal. Data Data Last Documented VS Vital Signs Date Time Temp Pulse Resp B/P (MAP) Pulse Ox O2 Delivery O2 Flow Rate FiO2 02/18/17 11:26 84 18 174/72 (106) 96 Room Air 02/18/17 07:12 98.1 Orders Orders Electrocardiogram (02/18/17 07:23) Complete Blood Count With Diff (02/18/17 07:23) Basic Metabolic Panel (Bmp) (02/18/17 07:23) Troponin I (02/18/17 07:23) Cyclosporine (02/18/17 07:23) Clonidine (Catapres) (02/18/17 08:45) Clonidine (Catapres) (02/18/17 09:45) Acetamin-Hydrocod 325-5 Mg ([place] 5-325 (02/18/17 12:00) Labs Laboratory Tests Test 02/18/17 08:08 White Blood Count 5.9 TH/MM3 Red Blood Count 4.16 MIL/MM3 Hemoglobin 11.6 GM/DL Hematocrit 35.4 % Mean Corpuscular Volume 85.1 FL Mean Corpuscular Hemoglobin 27.9 PG Mean Corpuscular Hemoglobin Concent 32.8 % Red Cell Distribution Width 14.7 % Platelet Count 224 TH/MM3 Mean Platelet Volume 6.4 FL Neutrophils (%) (Auto) 51.6 % Lymphocytes (%) (Auto) 34.9 % Monocytes (%) (Auto) 11.3 % Eosinophils (%) (Auto) 1.4 % Basophils (%) (Auto) 0.8 % Neutrophils # (Auto) 3.0 TH/MM3 Lymphocytes # (Auto) 2.1 TH/MM3 Monocytes # (Auto) 0.7 TH/MM3 Eosinophils # (Auto) 0.1 TH/MM3 Basophils # (Auto) 0.0 TH/MM3 CBC Comment DIFF FINAL Differential Comment Blood Urea Nitrogen 34 MG/DL Creatinine 1.40 MG/DL Random Glucose 88 MG/DL Calcium Level 8.7 MG/DL Sodium Level 136 MEQ/L Potassium Level 4.2 MEQ/L Chloride Level 103 MEQ/L Carbon Dioxide Level 25.3 MEQ/L Anion Gap 8 MEQ/L Estimat Glomerular Filtration Rate 50 ML/MIN Troponin I LESS THAN 0.02 NG/ML Cyclosporine Level 40 COMMENT MDM Medical Decision Making Medical Screen Exam Complete: Yes Emergency Medical Condition: Yes Medical Record Reviewed: Yes Interpretation(s) EKG shows sinus bradycardia at a rate of 56 bpm with no signs of acute ST changes. Laboratory Tests Test 02/18/17 08:08 Red Blood Count 4.16 MIL/MM3 (4.50-5.90) Hemoglobin 11.6 GM/DL (13.0-17.0) Hematocrit 35.4 % (39.0-51.0) Mean Platelet Volume 6.4 FL (7.0-11.0) Monocytes (%) (Auto) 11.3 % (0.0-8.0) Blood Urea Nitrogen 34 MG/DL (7-18) Creatinine 1.40 MG/DL (0.60-1.30) Estimat Glomerular Filtration Rate 50 ML/MIN (>89) Troponin I LESS THAN 0.02 NG/ML Differential Diagnosis Headache, elevated blood pressure: chronic hypertension versus hypertensive urgency versus acute renal failure versus viral syndrome Narrative Course Cardiac enzymes are negative. EKG did not show any signs of acute changes. Patient has no focal neurological deficits. His blood pressure came down after being given clonidine. I suspect that the issue is due to the recent changes in blood pressure medications. His cyclosporine levels are low but that is because patient states he has not taken it yesterday because he states he wasn' t feeling well. At this point, my plan would be to release the patient with follow-up to primary care physician. He will need further blood pressure medication reevaluation and treatment for hypertension. Return for any worsening in symptoms as needed. The plan has been discussed with him and he states understanding. Diagnosis Primary Impression: Hypertension Disposition: 01 DISCHARGE HOME Condition: Stable Silver Mcarthur MD Feb 18, 2017 07:49
[2017-02-18 08:13] LABS: BASOPHIL % 0.8 % (0.0-2.0); EOSINOPHIL # 0.1 TH/MM3 (0-0.4); EOSINOPHIL % 1.4 % (0.0-4.0); HEMATOCRIT 35.4 % (39.0-51.0); HEMO FLAGS DIFF FINAL; LYMPH % 34.9 % (9.0-44.0); LYMPHOCYTE # 2.1 TH/MM3 (1.0-4.8); MEAN CELL VOLUME 85.1 FL (80.0-100.0); MEAN CORPUSCULAR HEMOGLOBIN 27.9 PG (27.0-34.0); MEAN CORPUSCULAR HGB CONC 32.8 % (32.0-36.0); MONO % 11.3 % (0.0-8.0); NEUT % 51.6 % (16.0-70.0); PLATELET COUNT 224 TH/MM3 (150-450); RED BLOOD COUNT 4.16 MIL/MM3 (4.50-5.90); RED CELL DISTRIBUTION WIDTH 14.7 % (11.6-17.2); WHITE BLOOD COUNT 5.9 TH/MM3 (4.0-11.0)
[2017-02-18 08:26] LABS: CHLORIDE 103 MEQ/L (98-107); POTASSIUM 4.2 MEQ/L (3.5-5.1); SODIUM (NA) 136 MEQ/L (136-145)
[2017-02-18 08:29] LABS: ANION GAP 8 MEQ/L (5-15); BICARBONATE 25.3 MEQ/L (21.0-32.0); BLOOD UREA NITROGEN 34 MG/DL (7-18)
[2017-02-18 08:32] LABS: GLOMERULAR FILTRATION RATE 50 ML/MIN (>89)
[2017-02-18] MEDS ORDERED: cloNIDine HCL 0.1 MG TAB PO ONE ×2 (08:45→09:45)
[2017-02-18] MEDS ORDERED: ACETAMINOPHEN/HYDROcodone 325 MG/5 MG TAB PO ONE (12:00)
--- NOTE | 2017-02-18 20:00 | EKG ---
Date Performed: 02/18/2017 Time Performed: 07:28:30 PTAGE: 71 years EKG: SINUS BRADYCARDIA BORDERLINE LEFT AXIS DEVIATION POSSIBLE RIGHT VENTRICULAR CONDUCTION JULIA Y POSSIBLE LEFT VENTRICULAR HYPERTROPHY ABNORMAL ECG PREVIOUS TRACING : 12/05/2015 17.45 DOCTOR: Baljeet Jones Interpretating Date/Time 02/18/2017 19:57:38
== END 2017-02-18 13:03 | disposition home or self-care (01) ==
LOC: PHED 07:06
DX: I10 Essential (primary) hypertension (principal); R51 Headache; R94.31 Abnormal electrocardiogram [ECG] [EKG]; E78.00 Pure hypercholesterolemia, unspecified; H91.92 Unspecified hearing loss, left ear; Z94.0 Kidney transplant status; Z79.01 Long term (current) use of anticoagulants; Z87.39 Personal history of other diseases of the musculoskeletal system and connective tissue; Z86.79 Personal history of other diseases of the circulatory system; Z86.59 Personal history of other mental and behavioral disorders; Z85.828 Personal history of other malignant neoplasm of skin; Z87.438 Personal history of other diseases of male genital organs
CPT/HCPCS: 80048; 80158; 84484; 85025; 93005

== ENCOUNTER 2017-05-02 10:46 | Emergency (ER) | payer MEDICARE, OTHER ==
[~2017-05-02] VITALS: Ht 193 cm; Wt 79.0 kg
[~2017-05-02 10:46] MED LIST changes: -AMLO2.5T PO; -FURO1TAB62 PO; -GUAN1TAB PO; -HYDR-3580 PO; -IMUR50TA PO; +METO1TAB43 PO; -METO50TA PO; -VITA1000 PO
[2017-05-02 10:48] VITALS: BP 172/77; PULSE 63; RESP 18; TEMP 98.1; O2SAT 98
[2017-05-02] MEDS ORDERED: MYCO500T PO (11:23)
[2017-05-02] MEDS ORDERED: CLON0.1T PO (11:23)
[2017-05-02] MEDS ORDERED: HYDR-3583 PO (11:23)
--- NOTE | 2017-05-02 11:51 | PD ---
HPI Chief Complaint: Hypertension Time Seen by Provider: 11:48 Travel History International Travel<30 days: No Contact w/Intl Traveler<30days: No Traveled to known affect area: No History of Present Illness HPI 71-year-old male with history of kidney transplant 20 years ago in [place], followed by Dr. Kd Landaverde, presents the emergency department with anterior abdominal pain and decreased urine output since last evening. Patient also relates history of labile hypertension which has been difficult to treat with multiple hypertension medications including metoprolol, losartan, clonidine, and Doxyzosine. Patient denies fever, chills, nausea, vomiting, or diarrhea. He states gradually increasing lower extremity pitting edema as well which he is taking 20 mg of furosemide for daily. He states his last creatinine of 1.6 parking 3 weeks ago while in [place]. Patient has no known drug allergies. PFSH Past Medical History Hx Anticoagulant Therapy: Yes (coumadin) Arthritis: Yes Asthma: No Atrial Fibrillation: Yes Autoimmune Disease: No Anxiety: Yes Depression: No Heart Rhythm Problems: Yes (a fib ) Cancer: Yes (SKIN CA ON EAR AND CHEST) Cardiovascular Problems: Yes (HTN) High Cholesterol: Yes Chemotherapy: No Chest Pain: No Congestive Heart Failure: No COPD: No Cerebrovascular Accident: No Diminished Hearing: Yes (left ear [place] ) Endocrine: No GERD: No Genitourinary: Yes (BPH) Hepatitis: No Hiatal Hernia: No Hypertension: Yes Immune Disorder: Yes (on immunosuppressant therapy ) Kidney Stones: No Medical other: Yes (VOICE CHANGES--DIFFICULTY CLEARING THROAT) Musculoskeletal: Yes (BACK PROBLEMS, ARTHRITIS) Neurologic: No Psychiatric: Yes Reproductive: No Respiratory: No Migraines: No Radiation Therapy: No Renal Failure: Yes (TRANSPLANT) Seizures: No Sleep Apnea: No Thyroid Disease: No Ulcer: No Tetanus Vaccination: Unknown Influenza Vaccination: No Past Surgical History Abdominal Surgery: Yes (R INGUINAL HERNIA REPAIR 2010) AICD: No Arteriovenous Shunt: No Body Medical Devices: KIDNEY TRANSPLANT Cardiac Surgery: No Ear Surgery: Yes (skin cancer surgery ) Endocrine Surgery: No Eye Surgery: No Genitourinary Surgery: Yes (KIDNEY TRANSPLANT 1996) Insulin Pump: No Joint Replacement: No Oral Surgery: No Pacemaker: No Thoracic Surgery: No Other Surgery: Yes (KIDNEY REPLACEMENT, RIGHT SHOULDER ROTATOR CUFF) Social History Alcohol Use: No Tobacco Use: No Substance Use: No Allergies-Medications (Allergen,Severity, Reaction): Coded Allergies: No Known Allergies (Verified Adverse Reaction, Unknown, 05/02/17) Reported Meds & Prescriptions Reported Meds & Active Scripts Active Reported Clonidine (Clonidine HCl) 0.1 Mg Tab 0.1 Mg PO TID Mycophenolate (Mycophenolate Mofetil) 500 Mg Tab 500 Mg PO BID Hydrocodone-Acetaminophen 10-325 mg Tab 1 Tab PO Q6H PRN Losartan (Losartan Potassium) 50 Mg Tab 100 Mg PO DAILY Folic Acid 800 Mcg Tab 1,000 Mcg PO DAILY Warfarin 4 Mg Tab 4 Mg PO DAILY Prednisone 5 Mg Tab 5 Mg PO DAILY Metoprolol Tartrate 25 Mg Tab 25 Mg PO DAILY Cyclosporine 25 Mg Cap 50 Mg PO BID Physical Exam Narrative GENERAL: Patient appears in no acute distress. SKIN: Warm and dry. Normal color. Normal turgor. No rash. No signs of bruising or trauma. HEAD: Atraumatic. Normocephalic. EYES: Pupils equal and round. No scleral icterus. No injection or drainage. ENT: No nasal bleeding or discharge. Mucous membranes pink and moist. Pharynx is clear. Airway is patent. NECK: Trachea midline. No JVD. Supple and nontender. CARDIOVASCULAR: Regular rate and rhythm. No murmurs gallops or rubs appreciated. RESPIRATORY: No accessory muscle use. Clear to auscultation. Breath sounds equal bilaterally. GASTROINTESTINAL: Abdomen soft, non-tender, nondistended. Hepatic and splenic margins not palpable. MUSCULOSKELETAL: Extremities without clubbing, cyanosis, patient has bilateral pitting 1-2+ edema. No obvious deformities. Range of motion is full and without tenderness. NEUROLOGICAL: Awake and alert. No obvious cranial nerve deficits. Motor grossly within normal limits. Five out of 5 muscle strength in the arms and legs. Normal speech. PSYCHIATRIC: Appropriate mood and affect; insight and judgment normal. Data Data Last Documented VS Vital Signs Date Time Temp Pulse Resp B/P (MAP) Pulse Ox O2 Delivery O2 Flow Rate FiO2 05/02/17 12:32 57 173/81 (111) 05/02/17 12:01 18 98 Room Air 05/02/17 10:48 98.1 Orders Orders Complete Blood Count With Diff (05/02/17 12:02) Comprehensive Metabolic Panel (05/02/17 12:02) Prothrombin Time / Inr (Pt) (05/02/17 12:02) Act Partial Throm Time (Ptt) (05/02/17 12:02) Urinalysis - C+S If Indicated (05/02/17 12:02) Iv Access Insert/Monitor (05/02/17 12:02) Ecg Monitoring (05/02/17 12:02) Oximetry (05/02/17 12:02) Sodium Chloride 0.9% Flush (Ns Flush) (05/02/17 12:15) Electrocardiogram (05/02/17 12:02) Cath For Specimen (05/02/17 12:02) Sodium Chlorid 0.9% 500 Ml Inj (Ns 500 M (05/02/17 12:15) Labs Laboratory Tests Test 05/02/17 12:25 White Blood Count 8.9 TH/MM3 Red Blood Count 3.96 MIL/MM3 Hemoglobin 11.9 GM/DL Hematocrit 35.1 % Mean Corpuscular Volume 88.8 FL Mean Corpuscular Hemoglobin 30.1 PG Mean Corpuscular Hemoglobin Concent 33.9 % Red Cell Distribution Width 15.3 % Platelet Count 200 TH/MM3 Mean Platelet Volume 7.2 FL Neutrophils (%) (Auto) 69.1 % Lymphocytes (%) (Auto) 17.8 % Monocytes (%) (Auto) 12.3 % Eosinophils (%) (Auto) 0.3 % Basophils (%) (Auto) 0.5 % Neutrophils # (Auto) 6.2 TH/MM3 Lymphocytes # (Auto) 1.6 TH/MM3 Monocytes # (Auto) 1.1 TH/MM3 Eosinophils # (Auto) 0.0 TH/MM3 Basophils # (Auto) 0.0 TH/MM3 CBC Comment DIFF FINAL Differential Comment Prothrombin Time 23.8 SEC Prothromb Time International Ratio 2.1 RATIO Activated Partial Thromboplast Time 37.4 SEC Blood Urea Nitrogen 67 MG/DL Creatinine 3.31 MG/DL Random Glucose 84 MG/DL Total Protein 6.4 GM/DL Albumin 3.2 GM/DL Calcium Level 8.3 MG/DL Alkaline Phosphatase 67 U/L Aspartate Amino Transf (AST/SGOT) 22 U/L Alanine Aminotransferase (ALT/SGPT) 24 U/L Total Bilirubin 0.9 MG/DL Sodium Level 132 MEQ/L Potassium Level 4.8 MEQ/L Chloride Level 100 MEQ/L Carbon Dioxide Level 22.3 MEQ/L Anion Gap 10 MEQ/L Estimat Glomerular Filtration Rate 18 ML/MIN MDM Medical Decision Making Medical Screen Exam Complete: Yes Emergency Medical Condition: Yes Differential Diagnosis Abdominal pain. Renal failure. Urinary retention. Urinary tract infection. Enlarged prostate. History kidney transplant. Labile hypertension. Narrative Course Patient appears medically stable at time of exam. Labs ordered including CBC, CMP, urinalysis, and coagulation studies. CBC shows mild anemia with hemoglobin 11.9, hematocrit of 35.1. Otherwise unremarkable. Coagulation studies shows a PT of 23.8, and INR of 2.1. Chemistry shows sodium 132, BUN of 67, creatinine of 3.31 which is markedly elevated from last reported creatinine of 1.6. Calcium is 8.3, albumin is 3.2. Labs are reviewed with Dr. Melendez who recommends calling [place], as this is where his kidney function is follow-up. Call was placed to Dr. Wes Landaverde, in [facility]. I spoke with Dr. Landaverde's nurse, who recommended transferring the patient to [place] for further evaluation and treatment by the renal team. Call was placed transfer center to arrange for transfer. Patient is aware and agrees to this plan. Spoke with Dr. Young, in the emergency Department who accepted the patient for transfer. Transfer will be arranged, and nursing staff will call report. Patient is stable for transport. Diagnosis Primary Impression: Acute on chronic renal failure Qualified Codes: N17.9 - Acute kidney failure, unspecified; N18.9 - Chronic kidney disease, unspecified Additional Impression: HTN (hypertension) Qualified Codes: I10 - Essential (primary) hypertension Disposition: 70 TRANSFER TO OTHER FACILITY Condition: Stable Ismael Watts May 02, 2017 11:51
[2017-05-02 12:01] VITALS: BP 173/81; PULSE 64; RESP 18; O2SAT 98
[2017-05-02] MEDS ORDERED: SODIUM CHLORIDE 0.9% FLUSH 10 ML FLUSH IV FLUSH PRN (12:15)
[2017-05-02] MEDS ORDERED: SODIUM CHLORID 0.9% 500 ML INJ 500 ML IV ONE (12:15)
[2017-05-02 12:32] VITALS: BP 173/81; PULSE 57
[2017-05-02 12:47] LABS: AUTOMATED NEUTROPHIL # 6.2 TH/MM3 (1.8-7.7); BASOPHIL % 0.5 % (0.0-2.0); EOSINOPHIL % 0.3 % (0.0-4.0); HEMATOCRIT 35.1 % (39.0-51.0); HEMO FLAGS DIFF FINAL; LYMPH % 17.8 % (9.0-44.0); LYMPHOCYTE # 1.6 TH/MM3 (1.0-4.8); MEAN CELL VOLUME 88.8 FL (80.0-100.0); MEAN CORPUSCULAR HEMOGLOBIN 30.1 PG (27.0-34.0); MEAN CORPUSCULAR HGB CONC 33.9 % (32.0-36.0); MONO % 12.3 % (0.0-8.0); NEUT % 69.1 % (16.0-70.0); PLATELET COUNT 200 TH/MM3 (150-450); RED BLOOD COUNT 3.96 MIL/MM3 (4.50-5.90); RED CELL DISTRIBUTION WIDTH 15.3 % (11.6-17.2); WHITE BLOOD COUNT 8.9 TH/MM3 (4.0-11.0)
[2017-05-02 12:59] LABS: APTT (PATIENT) 37.4 SEC (24.3-30.1); INTERNATIONAL NORMALIZED RATIO 2.1 RATIO; PROTHROMBIN TIME - PATIENT 23.8 SEC (9.8-11.6)
[2017-05-02 13:05] LABS: ANION GAP 10 MEQ/L (5-15); AST (GOT) 22 U/L (15-37); BICARBONATE 22.3 MEQ/L (21.0-32.0); BLOOD UREA NITROGEN 67 MG/DL (7-18); CHLORIDE 100 MEQ/L (98-107); GLOMERULAR FILTRATION RATE 18 ML/MIN (>89); POTASSIUM 4.8 MEQ/L (3.5-5.1); SODIUM (NA) 132 MEQ/L (136-145)
[2017-05-02 13:07] LABS: ALT (GPT) 24 U/L (12-78)
[2017-05-02 13:09] LABS: ALKALINE PHOSPHATASE 67 U/L (45-117); TOTAL BILIRUBIN ADULT 0.9 MG/DL (0.2-1.0)
[2017-05-02 14:42] VITALS: BP 180/81; PULSE 60; RESP 18; O2SAT 97
--- NOTE | 2017-05-03 16:31 | EKG ---
Date Performed: 05/02/2017 Time Performed: 12:40:56 PTAGE: 71 years EKG: Sinus rhythm BORDERLINE LEFT AXIS DEVIATION INCOMPLETE RIGHT BUNDLE BRANCH BLOCK MODERATE VOLTAGE CRITERIA FOR LV H, CONSIDER NORMAL VARIANT BORDERLINE ECG Since PREVIOUS TRACING , no significant change noted PREVIOUS TRACIN02/18/2017 07.28 DOCTOR: Valeriano Frank Interpretating Date/Time 05/03/2017 16:30:21
== END 2017-05-02 17:17 | disposition short-term general hospital (02) ==
LOC: NEPE 10:46 → NEDAMB 17:17
DX: I12.9 Hypertensive chronic kidney disease with stage 1 through stage 4 chronic kidney disease, or unspecified chronic kidney disease (principal); N18.9 Chronic kidney disease, unspecified; D64.9 Anemia, unspecified; I45.10 Unspecified right bundle-branch block; M19.90 Unspecified osteoarthritis, unspecified site; I48.91 Unspecified atrial fibrillation; F41.9 Anxiety disorder, unspecified; E78.00 Pure hypercholesterolemia, unspecified; N40.0 Benign prostatic hyperplasia without lower urinary tract symptoms
CPT/HCPCS: 80053; 85025; 85610; 85730; 93005; 96360; 99285; J7040

== ENCOUNTER 2017-05-29 14:18 | Emergency (ER) | payer MEDICARE, OTHER ==
[~2017-05-29] VITALS: Ht 193 cm; Wt 85.7 kg
[~2017-05-29 14:18] MED LIST changes: +CLON0.1T PO; -DOXA1TAB36 PO; +HYDR-3583 PO; -MAGN500T5 PO; -METO1TAB43 PO; +MYCO500T PO
[2017-05-29 14:23] VITALS: BP 160/74; PULSE 60; RESP 16; TEMP 98.1; O2SAT 97
--- NOTE | 2017-05-29 14:50 | PD ---
HPI Chief Complaint: Edema Time Seen by Provider: 14:29 Travel History International Travel<30 days: No Contact w/Intl Traveler<30days: No Traveled to known affect area: No History of Present Illness HPI This 71-year-old male is complaining of swelling of his ankles. He says that 20 years ago he had a kidney transplant. This was done in [place] and he was followed at [place]. In April he developed elevation of his creatinine which apparently was secondary to bladder outlet obstruction. He had a [place] catheter for a while and his creatinine improved. The catheter has been removed. He says that there have been talk about putting him on finasteride but he never got the prescription. He does say that he occasionally needs Lasix for edema. He says he been urinating well. PFSH Past Medical History Hx Anticoagulant Therapy: Yes (coumadin) Arthritis: Yes Asthma: No Atrial Fibrillation: Yes Autoimmune Disease: No Anxiety: Yes Depression: No Heart Rhythm Problems: Yes (a fib ) Cancer: Yes (SKIN CA ON EAR AND CHEST) Cardiovascular Problems: Yes (HTN) High Cholesterol: Yes Chemotherapy: No Chest Pain: No Congestive Heart Failure: No COPD: No Cerebrovascular Accident: No Diminished Hearing: Yes (left ear [place] ) Endocrine: No GERD: No Genitourinary: Yes (BPH) Hepatitis: No Hiatal Hernia: No Hypertension: Yes Immune Disorder: Yes (on immunosuppressant therapy ) Kidney Stones: No Musculoskeletal: Yes (BACK PROBLEMS, ARTHRITIS) Neurologic: No Psychiatric: Yes Reproductive: No Respiratory: No Migraines: No Radiation Therapy: No Renal Failure: Yes (TRANSPLANT) Seizures: No Sleep Apnea: No Thyroid Disease: No Ulcer: No Past Surgical History Abdominal Surgery: Yes (R INGUINAL HERNIA REPAIR 2010) AICD: No Arteriovenous Shunt: No Body Medical Devices: KIDNEY TRANSPLANT Cardiac Surgery: No Ear Surgery: Yes (skin cancer surgery ) Endocrine Surgery: No Eye Surgery: No Genitourinary Surgery: Yes (KIDNEY TRANSPLANT 1996) Insulin Pump: No Joint Replacement: No Oral Surgery: No Pacemaker: No Thoracic Surgery: No Other Surgery: Yes (KIDNEY REPLACEMENT, RIGHT SHOULDER ROTATOR CUFF) Social History Alcohol Use: No Tobacco Use: No Substance Use: No Allergies-Medications (Allergen,Severity, Reaction): Coded Allergies: No Known Allergies (Verified Adverse Reaction, Unknown, 05/02/17) Reported Meds & Prescriptions Reported Meds & Active Scripts Active Flomax (Tamsulosin HCl) 0.4 Mg Cap 0.4 Mg PO HS Lasix (Furosemide) 40 Mg Tab 40 Mg PO DAILY 14 Days Macrobid (Nitrofurantoin Monohydrate Macrocrystals) 100 Mg Capsule 100 Mg PO BID 7 Days Reported Selenium 200 Mcg Tab 100 Mg PO DAILY Vitamin D-3 (Cholecalciferol) 2,000 Unit Tab 1 Tab PO DAILY Warfarin 4 Mg Tab 8 Mg PO DAILY PRN Metoprolol Succinate ER 24 HR (Metoprolol Succinate) 100 Mg Tab 100 Mg PO DAILY Hydralazine (Hydralazine HCl) 100 Mg Tab 50 Mg PO TID Take with meals Doxazosin (Doxazosin Mesylate) 8 Mg Tab 8 Mg PO DAILY Calcitriol 0.25 Mcg Cap 0.25 Mcg PO DAILY Ascorbic Acid 500 Mg Tab 500 Mg PO DAILY Clonidine (Clonidine HCl) 0.1 Mg Tab 0.2 Mg PO TID Mycophenolate (Mycophenolate Mofetil) 500 Mg Tab 500 Mg PO BID Hydrocodone-Acetaminophen 10-325 mg Tab 1 Tab PO Q6H PRN Folic Acid 800 Mcg Tab 1,000 Mcg PO DAILY Warfarin 4 Mg Tab 4 Mg PO SUN Sat SAT Prednisone 5 Mg Tab 5 Mg PO DAILY Cyclosporine 25 Mg Cap 50 Mg PO BID Review of Systems General / Constitutional: No: Fever, Chills Eyes: No: Diploplia, Blurred Vision HENT: No: Headaches, Vertigo Cardiovascular: Positive: Edema, No: Chest Pain or Discomfort, Palpitations Respiratory: No: Cough, Shortness of Breath Gastrointestinal: No: Nausea, Vomiting Genitourinary: No: Urgency, Frequency Musculoskeletal: No: Myalgias Skin: No Rash, No Itching Endocrine: No: Heat Intolerance Hematologic/Lymphatic: No: Easy Bruising Physical Exam Narrative GENERAL: Thin male no acute distress SKIN: Focused skin assessment warm/dry. HEAD: Atraumatic. Normocephalic. EYES: Pupils equal and round. No scleral icterus. No injection or drainage. ENT: No nasal bleeding or discharge. Mucous membranes pink and moist. NECK: Trachea midline. No JVD. CARDIOVASCULAR: Regular rate and rhythm. No murmur appreciated. RESPIRATORY: No accessory muscle use. Clear to auscultation. Breath sounds equal bilaterally. GASTROINTESTINAL: Abdomen soft, non-tender, nondistended. Hepatic and splenic margins not palpable. Bladder is not palpably distended MUSCULOSKELETAL: No obvious deformities. No clubbing. No cyanosis. There is bilateral pedal edema edema. NEUROLOGICAL: Awake and alert. No obvious cranial nerve deficits. Motor grossly within normal limits. Normal speech. PSYCHIATRIC: Appropriate mood and affect; insight and judgment normal. Data Data Last Documented VS Vital Signs Date Time Temp Pulse Resp B/P (MAP) Pulse Ox O2 Delivery O2 Flow Rate FiO2 05/29/17 14:47 97 Room Air 05/29/17 14:45 (102) 05/29/17 14:23 98.1 60 16 Orders Orders Complete Blood Count With Diff (05/29/17 14:46) Comprehensive Metabolic Panel (05/29/17 14:46) Urinalysis - C+S If Indicated (05/29/17 14:46) Urine Culture (05/29/17 14:45) Labs Laboratory Tests Test 05/29/17 14:45 05/29/17 14:55 Urine Collection Type CLEAN CATCH Urine Color YELLOW Urine Turbidity CLEAR Urine pH 5.5 Urine Specific [place] 1.012 Urine Protein 100 mg/dL Urine Glucose (UA) NEG mg/dL Urine Ketones NEG mg/dL Urine Occult Blood NEG Urine Nitrite NEG Urine Bilirubin NEG Urine Leukocyte Esterase TRACE Urine WBC 15-19 /hpf Urine WBC Clumps FEW Urine Squamous Epithelial Cells 0-5 /hpf Urine Bacteria OCC /hpf Microscopic Urinalysis Comment CULTURE INDICATED Urine Collection Time 14:45 White Blood Count 5.7 TH/MM3 Red Blood Count 3.45 MIL/MM3 Hemoglobin 10.1 GM/DL Hematocrit 31.1 % Mean Corpuscular Volume 90.3 FL Mean Corpuscular Hemoglobin 29.1 PG Mean Corpuscular Hemoglobin Concent 32.3 % Red Cell Distribution Width 13.5 % Platelet Count 238 TH/MM3 Mean Platelet Volume 6.6 FL Neutrophils (%) (Auto) 72.6 % Lymphocytes (%) (Auto) 17.5 % Monocytes (%) (Auto) 9.0 % Eosinophils (%) (Auto) 0.5 % Basophils (%) (Auto) 0.4 % Neutrophils # (Auto) 4.2 TH/MM3 Lymphocytes # (Auto) 1.0 TH/MM3 Monocytes # (Auto) 0.5 TH/MM3 Eosinophils # (Auto) 0.0 TH/MM3 Basophils # (Auto) 0.0 TH/MM3 CBC Comment DIFF FINAL Differential Comment Blood Urea Nitrogen 36 MG/DL Creatinine 1.80 MG/DL Random Glucose 113 MG/DL Total Protein 6.1 GM/DL Albumin 2.9 GM/DL Calcium Level 8.1 MG/DL Alkaline Phosphatase 77 U/L Aspartate Amino Transf (AST/SGOT) 19 U/L Alanine Aminotransferase (ALT/SGPT) 24 U/L Total Bilirubin 0.9 MG/DL Carbon Dioxide Level 22.3 MEQ/L Estimat Glomerular Filtration Rate 37 ML/MIN [facility] Medical Decision Making Medical Screen Exam Complete: Yes Emergency Medical Condition: Yes Medical Record Reviewed: Yes Differential Diagnosis Differential includes UTI, electrolyte imbalance, renal insufficiency Narrative Course His creatinine today is 1.8 which is in line with previous values. Patient has been told he should be on Flomax. I will also prescribe Bactrim and some Lasix for his edema. Diagnosis Primary Impression: Edema Additional Impression: Urinary tract infection Scripts Tamsulosin (Flomax) 0.4 Mg Cap 0.4 MG PO HS for Manage Prostate Problems, #30 CAP 0 Refills Prov: Ru Sparks MD 05/29/17 Furosemide (Lasix) 40 Mg Tab 40 MG PO DAILY for 14 Days, #14 TAB 0 Refills Prov: Ru Sparks MD 05/29/17 Nitrofurantoin Monohydrate Macrocrystals (Macrobid) 100 Mg Capsule 100 MG PO BID for Infection for 7 Days, #14 CAP 0 Refills Prov: Ru Sparks MD 05/29/17 Disposition: 01 DISCHARGE HOME Condition: Stable Ru Sparks MD May 29, 2017 14:50
[2017-05-29 15:02] LABS: AUTOMATED NEUTROPHIL # 4.2 TH/MM3 (1.8-7.7); BASOPHIL % 0.4 % (0.0-2.0); EOSINOPHIL % 0.5 % (0.0-4.0); HEMATOCRIT 31.1 % (39.0-51.0); HEMO FLAGS DIFF FINAL; LYMPH % 17.5 % (9.0-44.0); MEAN CELL VOLUME 90.3 FL (80.0-100.0); MEAN CORPUSCULAR HEMOGLOBIN 29.1 PG (27.0-34.0); MEAN CORPUSCULAR HGB CONC 32.3 % (32.0-36.0); NEUT % 72.6 % (16.0-70.0); PLATELET COUNT 238 TH/MM3 (150-450); RED BLOOD COUNT 3.45 MIL/MM3 (4.50-5.90); RED CELL DISTRIBUTION WIDTH 13.5 % (11.6-17.2); WHITE BLOOD COUNT 5.7 TH/MM3 (4.0-11.0)
[2017-05-29 15:04] LABS: BLOOD, URINE NEG (NEG); GLUCOSE,URINE NEG (NEG); KETONE, URINE NEG (NEG); NITRITE,URINE NEG (NEG); PH, URINE 5.5 (5.0-8.5)
[2017-05-29] MEDS ORDERED: DOXA1TAB43 PO (15:06)
[2017-05-29] MEDS ORDERED: METO1TAB43 PO (15:06)
[2017-05-29] MEDS ORDERED: ASCO500T PO (15:06)
[2017-05-29] MEDS ORDERED: HYDR-3801 PO (15:06)
[2017-05-29] MEDS ORDERED: CHOL1TAB42 PO (15:06)
[2017-05-29] MEDS ORDERED: CALC0.25 PO (15:06)
[2017-05-29] MEDS ORDERED: SELE200T17 PO (15:06)
[2017-05-29] MEDS ORDERED: WARF-20 PO (15:06)
[2017-05-29 15:17] LABS: METHOD OF COLLECTION CLEAN CATCH
[2017-05-29 15:18] LABS: BACTERIA, URINE OCC /hpf; COMMENT (UR) CULTURE INDICATED; CULTURE IF INDICATED CULTURE INDICATED; SQUAMOUS EPITHELIAL CELL URINE 0-5 /hpf (0-5); URINE COLOR YELLOW (YELLW/STRAW); WBC, URINE 15-19 /hpf (0-5)
[2017-05-29 15:21] LABS: BICARBONATE 22.3 MEQ/L (21.0-32.0); BLOOD UREA NITROGEN 36 MG/DL (7-18)
[2017-05-29 15:24] LABS: ALT (GPT) 24 U/L (12-78); AST (GOT) 19 U/L (15-37); GLOMERULAR FILTRATION RATE 37 ML/MIN (>89)
[2017-05-29 15:25] LABS: TOTAL BILIRUBIN ADULT 0.9 MG/DL (0.2-1.0)
[2017-05-29 15:27] LABS: ALKALINE PHOSPHATASE 77 U/L (45-117)
[2017-05-29] MEDS ORDERED: MACR100C2 PO (15:36)
[2017-05-29] MEDS ORDERED: FURO1TAB60 PO (15:36)
[2017-05-29] MEDS ORDERED: FINA5TAB2 PO (15:36)
[2017-05-29] MEDS ORDERED: TAMS5CAP PO (15:44)
[2017-05-29 16:26] LABS: ANION GAP 10 MEQ/L (5-15); CHLORIDE 102 MEQ/L (98-107); POTASSIUM 4.5 MEQ/L (3.5-5.1); SODIUM (NA) 134 MEQ/L (136-145)
[2017-05-29 16:35] VITALS: BP 181/79; PULSE 65; RESP 18; O2SAT 100
== END 2017-05-29 17:07 | disposition home or self-care (01) ==
LOC: PHED 14:18
DX: N39.0 Urinary tract infection, site not specified (principal); B96.89 Other specified bacterial agents as the cause of diseases classified elsewhere; Z94.0 Kidney transplant status; Z79.01 Long term (current) use of anticoagulants
CPT/HCPCS: 80053; 81001; 85025; 87086; 99284